=== PATIENT | female | born 1955 | race American Indian/Alaskan Native ===

== ENCOUNTER 2017-03-18 11:30 | Inpatient (IN) | payer MEDICAID ==
[2017-03-18] MEDS ORDERED: ceFAZolin 2 GM/SWFI 2 GM/20 ML SYR IVP ONE (16:42)
--- NOTE | 2017-03-18 18:16 | CPEKG ---
Heart Rate: 82 RR Interval: 732 P-R Interval: 144 QRSD Interval: 80 QT Interval: 372 QTC Interval: 435 P Coolidge: 77 QRS Coolidge: 66 T Wave Coolidge: 74 EKG Severity - BORDERLINE ECG - EKG Impression: SINUS RHYTHM EKG Impression: BORDERLINE INFERIOR Q WAVES EKG Impression: BORDERLINE T ABNORMALITIES, ANT-LAT LEADS Electronically Signed By: Wes Perez 22-Mar-2017 10:45:42
[2017-03-18] MEDS ORDERED: ONDANSETRON 4 MG/2 ML VIAL IVP PRN (20:42)
[2017-03-18] MEDS ORDERED: ALBUTEROL 3 ML DEYVIAL IH PRN (20:42)
[2017-03-18] MEDS ORDERED: ONDANSETRON DISINTEGRATING 4 MG TAB PO PRN (20:42)
[2017-03-18] MEDS ORDERED: ACETAMINOPHEN 325 MG TAB PO PRN (20:42)
--- NOTE | 2017-03-18 21:19 | GHP ---
[f rep st] HISTORY AND PHYSICAL DATE OF ADMISSION: 03/18/2017 CHIEF COMPLAINT: Needing lumpectomy tomorrow. Patient is homeless with difficulty getting preop mignon luation. HISTORY: This is a 62-year-old female who several months ago, discovered a lump in her right breast. This was diagnosed as invasive mammary carcinoma, which is ER negative and HER2 negative. It has a ctually become more painful. She is due to have surgery tomorrow, but because she is homeless with d ifficulty of getting care, she was admitted to the Medicine service the night before for preop evalua tion. Patient has no cardiac history. She does have a history of asthma. This seems to be exacerba flash by cold weather. It has actually not been as bad lately. She uses an inhaler once or twice per day. She has a nebulizer. She is not on any inhaled steroids. She is feeling fairly well. She can climb up a flight of stairs without problem. REVIEW OF SYSTEMS: A 10-point review of systems was obtained and is negative. PAST MEDICAL HISTORY: 1. Ankylosing spondylitis. 2. Asthma. 3. COPD. SOCIAL HISTORY: She is a smoker and is currently homeless. FAMILY HISTORY: A couple of aunts had breast cancer. Mother had lung cancer. PHYSICAL EXAMINATION: VITAL SIGNS: Afebrile, blood pressure is 103/48, heart rate is 93 oxygen satu ration is 90% on room air. GENERAL: Patient is thin but in no apparent distress. HEENT: Nonicteri c sclerae. Extraocular movements intact. Moist mucous membranes. NECK: Supple. No thyromegaly. LUNGS: Good effort. Some slight coarse expiratory wheezes. CARDIOVASCULAR: Regular rate and rhyth m. No murmurs, rubs, or gallops. ABDOMEN: Positive bowel sounds. Soft, nontender, nondistended. No hepatosplenomegaly. EXTREMITIES: No clubbing, cyanosis, or edema. SKIN: Without rash. Dry, in tact. NEUROLOGIC: Moving all 4 extremities equally. PSYCH: Normal affect. LABS: Still pending. EKG, personally reviewed and interpreted, does show no ischemic changes or Q-w aves. ASSESSMENT: This is a 62-year-old female who has right-sided breast cancer. 1. Right-sided breast cancer. Patient can proceed to surgery tomorrow. She is not in any active as thma exacerbation. Will continue with nebulizer treatments. Consider starting inhaled steroid as we ll to see if we may be able to give her the rest of it to complete. If she is unable to get the medi cation, we will probably just start Flovent. 2. History of asthma. As above, will continue nebulizer treatments and start inhaled steroid. 3. Chronic obstructive pulmonary disease. Patient is a smoker currently, is requiring nicotine [facility]. 4. Ankylosing spondylitis. This is quiescent. /[id number]/MODL
[2017-03-18 21:39] LABS: PLATELET COUNT 312 10^3/uL (150-400)
[2017-03-18] MEDS: NICOTINE 14 MG/24 HR PATCH TD SCH (21:46)
[2017-03-18] MEDS: IPRATROPIUM/ALBUTEROL 3 ML DEYVIAL IH SCH (22:54)
[2017-03-18] MEDS: FLUTICASONE HFA 110 MCG MDI IH SCH (22:54)
[2017-03-19] MEDS: IPRATROPIUM/ALBUTEROL 3 ML DEYVIAL IH SCH ×4 (05:53→20:27)
[2017-03-19] MEDS ORDERED: LIDOCAINE 1% 300 MG/30 ML SDV ONE (07:50)
[2017-03-19] MEDS ORDERED: BUPIVACAINE 0.5% 30 ML SDV ONE (07:50)
[2017-03-19] MEDS: NICOTINE 14 MG/24 HR PATCH TD SCH (08:55)
[2017-03-19] MEDS: FLUTICASONE HFA 110 MCG MDI IH SCH ×2 (08:58→20:27)
[2017-03-19] MEDS ORDERED: LR 1,000 ML IV ONE (09:39)
[2017-03-19] MEDS ORDERED: ceFAZolin 2 GM/SWFI 2 GM/20 ML SYR IVP ONE (10:00)
--- NOTE | 2017-03-19 10:49 | ASMTCMCOM ---
CM Note CM Note Notes: Pt admitted for lumpectomy. Pt will likely DC Monday 03/20. Pt has been approved for a two-night respite stay at the [facility] to be paid from the breast cancer fund. CM made reservation at [facility] for Thursday and Thursday night. Pt's partner given permission to stay in room with pt. [employer] contacted. They will deliver 6 frozen meals, salads and desserts to the [facility] tomorrow. If pt's DC delayed, [facility] will need to be contacted as well as [employer]. [employer] does not deliver on weekends so other arrangements for food will need to be made. If pt requires HC RN for any reason, [facility] will need to be contacted. CM will continue to follow. Date Signed: 03/19/2017 10:48 AM Electronically Signed By:Noemi Pantoja LCSW
--- NOTE | 2017-03-19 11:08 | PDANEPAE ---
ANE History of Present Illness 62 year old female presents for breast lumpectomy. ANE Past Medical History - Cardiovascular History Hx Hypertension: No Hx Arrhythmias: No Hx Chest Pain: No Hx Coronary Artery / Peripheral Vascular Disease: No Hx CHF / Valvular Disease: No Hx Palpitations: No - Pulmonary History Hx COPD: Yes Hx Asthma/Reactive Airway Disease: Yes Hx Recent Upper Respiratory Infection: No Hx Oxygen in Use at Home: No Hx Sleep Apnea: No Sleep Apnea Screening Result - Last Documented: Negative Pulmonary History Comment: asthma - Neurologic History Hx Cerebrovascular Accident: No Hx Seizures: No Hx Dementia: No - Endocrine History Hx Diabetes: No Obesity: no - Renal History Hx Renal Disorders: No - Liver History Hx Hepatic Disorders: No - Neurological & Psychiatric Hx Hx Neurological and Psychiatric Disorders: No - Cancer History Hx Cancer: Yes Cancer History Comment: Breast Cancer right - Congenital Disorder History Hx Congenital Disorders: No - GI History Hx Gastrointestinal Disorders: No - Other Health History Other Health History: Ankylosing Spondylitis. Rheumatic Fever - Chronic Pain History Chronic Pain: No - Surgical History Prior Surgeries: c-secton. tubal ligation. tonsillectomy ANE Review of Systems Review of systems is: negative Review of Systems: - Exercise capacity Exercise capacity: >=4 METS METS (RN): 4 METS ANE Patient History - Allergies Allergies/Adverse Reactions: baclofen Allergy (Verified 03/18/17 16:55) Other-Enter Comments codeine Allergy (Verified 03/18/17 18:44) - Home Medications Home medications: home medication list seen and reviewed Home Medications: Albuterol [Proventil Inhaler HFA (*)] 1 - 2 puffs IH Q4H PRN 03/17/17 [Last Taken 03/18/17 12:00] Albuterol Sulfate [ALBUTEROL SULFATE 1.25 MG/3 ML] 1.25 mg IH BID PRN 03/18/17 [ Last Taken 1 Week Ago ~03/11/17] HYDROcodone/APAP 10/325 [Caret 10/325 (*)] 1 tab PO TID PRN 03/18/17 [Last Taken 03/18/17 14:00] - NPO status NPO Status: no food or drink >8 hours NPO Since - Liquids (Date): 03/19/17 NPO Since - Liquids (Time): 00:00 NPO Since - Solids (Date): 03/19/17 NPO Since - Solids (Time): 00:00 - Anes Hx Anes Hx: no prior problems - Smoking Hx Smoking Status: Current every day smoker Marijuana use: No - Family Anes Hx Family Anes Hx: neg - N/A Family Hx Anesthesia Complications: none ANE Labs/Vital Signs - Labs Result Diagrams: 03/18/17 21:30 03/18/17 21:30 - Vital Signs Vital Signs: reviewed preoperatively; see RN documention for details Blood Pressure: 111/83 Heart Rate: 93 Respiratory Rate: 16 O2 Sat (%): 91 Height: 152.4 cm Weight: 41.73 kg ANE Physical Exam - Airway Neck exam: FROM Mallampati Score: Class 1 Mouth exam: normal dental/mouth exam - Pulmonary Pulmonary: no respiratory distress - Cardiovascular Cardiovascular: regular rate and rhythym - ASA Status ASA Status: III ANE Anesthesia Plan Anesthesia Plan: GA w LMA Total IV Anesthesia: No
[2017-03-19] MEDS ORDERED: PROPOFOL/EMULSION 500 MG/50 ML BOTTLE IV ONE (11:32)
[2017-03-19] MEDS ORDERED: fentaNYL 100 MCG/2 ML INJ ONE ×2 (11:53→13:16)
[2017-03-19] MEDS ORDERED: DEXAMETHASONE 4 MG/ML VIAL ONE (11:54)
[2017-03-19] MEDS ORDERED: ONDANSETRON 4 MG/2 ML VIAL ONE (11:54)
--- NOTE | 2017-03-19 12:40 | POSTOPPROG ---
Post Op Note Date of Operation: 03/19/17 Surgeon: Nena Fleming Anesthesiologist: jemima Anesthesia: GET(General Endotracheal) Pre-op Diagnosis: r breast cancer Post-op Diagnosis: same Indication: 62 yo with r breast cancer Procedure: r lumpectomy r sln Findings: neg sln Inf/Abcess present in the surg proc area at time of surgery?: No Specimen(s): breast tissue margins and sln
[2017-03-19] MEDS ORDERED: HYDROmorphONE/DILAUDID 1 MG/ML INJ IVP PRN (12:41)
[2017-03-19] MEDS ORDERED: ONDANSETRON 4 MG/2 ML VIAL IVP PRN (12:41)
[2017-03-19] MEDS ORDERED: NALOXONE HCL 0.4 MG/ML INJ IVP PRN (12:41)
[2017-03-19] MEDS ORDERED: LR 500 ML IV PRN (12:41)
[2017-03-19] MEDS ORDERED: HYDROCODONE/APAP 5/325 TAB PO PRN (12:41)
[2017-03-19] MEDS ORDERED: PHENYLEPHRINE HCL 100 MCG/ML SYR IVP PRN (12:41)
[2017-03-19] MEDS ORDERED: epHEDrine SULFATE 10 MG/ML SYR IVP PRN (12:41)
[2017-03-19] MEDS ORDERED: ROCURONIUM 50 MG/5 ML VIAL ONE (12:47)
[2017-03-19] MEDS: fentaNYL 100 MCG/2 ML INJ IVP PRN ×2 (13:20→13:30)
--- NOTE | 2017-03-19 15:10 | HOSPPROG ---
Hospitalist Progress Note Assessment/Plan: # breast cancer, ER neg, HER2 neg - s/p lumpectomy and SLN bx (negative) # COPD - cont inhalers, on RA # tobacco - nicotine patch # ankylosing spondylitis Subjective: s/p surgery, no complications Objective: Vital Signs Temp Pulse Resp BP Pulse Ox 36.8 C 82 18 110/68 92 03/19/17 13:56 03/19/17 13:56 03/19/17 13:56 03/19/17 13:56 03/19/17 13:56 Laboratory Results 03/18/17 21:30 03/18/17 21:30 03/18/17 03/19/17 03/20/17 05:59 05:59 05:59 Intake Total 900 Output Total 10 Balance 890 CXR and ECG personally reviewed - Physical Exam Constitutional: no apparent distress, appears nourished Cardiovascular: regular rate and rhythym, no murmur, rub, or gallop Respiratory: no respiratory distress, no rales or rhonchi, clear to auscultation Gastrointestinal: normoactive bowel sounds, soft, non-tender abdomen, no palpable masses Skin: warm ICD10 Worksheet Patient Problems: Problems Problem Status Onset Breast cancer Acute
--- NOTE | 2017-03-19 17:27 | POSTANESTH ---
Post Anesthetic Evaluation Cardiovascular Status: Normal, Stable, Similar to Pre-Op Cond Respiratory Status: Normal, Stable, Similar to Pre-op Cond. Level of Consciousness/Mental Status: Can Participate in Eval, Alert and Oriented Pain Control: Adequate, Prn Tx Ordered Nausea/Vomiting Control: Adequate, Prn Tx Ordered Complications Possibly Related to Anesthesia: None Noted
[2017-03-19] MEDS: HYDROCODONE/APAP 10/325 TAB PO PRN (22:00)
[2017-03-20] MEDS: IPRATROPIUM/ALBUTEROL 3 ML DEYVIAL IH SCH ×2 (06:14→11:35)
[2017-03-20] MEDS: HYDROCODONE/APAP 10/325 TAB PO PRN (06:25)
--- NOTE | 2017-03-20 08:34 | SOAPPROG ---
SOAP Progress Note Assessment/Plan: Assessment/Plan: 62yo F POD #1 s/p right lumpectomy and SLN biopsy. Frozen section negative Path pending Pain controlled Dispo: plan is DC to hot today - case management will coordinate plan/. F/u 2 weeks S: feeling well this morning. Using ice which is helping with discomfort O: Laying in bed, comfortable, NAD No increased WOB R breast dressing in place without surrounding erythema. No ecchymosis. Nontender Objective: Vital Signs Temp Pulse Resp BP Pulse Ox 36.6 C 77 12 93/55 L 94 03/20/17 04:00 03/20/17 04:00 03/20/17 06:15 03/20/17 04:00 03/20/17 06:15 Laboratory Results 03/18/17 21:30 03/18/17 21:30 03/19/17 03/20/17 03/21/17 05:59 05:59 05:59 Intake Total 3000 Output Total 12 Balance 2988 ICD10 Worksheet Patient Problems: Problems Problem Status Onset Breast cancer Acute
--- NOTE | 2017-03-20 08:48 | PDMN ---
Medical Necessity Medical necessity: change to IP; los>2mn for continued eval and rx s/p R lumpectomy/SLN for breast cancer; comorbid COPD, ankylosing spondylitis, and homelessness; per order and progress note 03/19/17
[2017-03-20 10:35] VITALS: BP 102/61; PULSE 82; RESP 18; TEMP 98.6; O2SAT 93
[2017-03-20] MEDS: NICOTINE 14 MG/24 HR PATCH TD SCH (11:46)
--- NOTE | 2017-03-20 14:39 | ASDISCHSUM ---
Discharge Information Plan Status: Medically Cleared to Leave: Discharge Date:03/20/2017 02:30 PM CM D/C Disposition: ADT D/C Disposition:Home, Routine, Self-Care Projected Discharge Date:03/20/2017 02:30 PM Transportation at D/C: Discharge Delay Reason: Follow-Up Date:03/20/2017 02:30 PM Discharge Slot: Final Diagnosis: Placement Information Patient Contact Information Contact Name:NATALIE Relationship:Joss Address: Work Phone: City: [facility] Phone: State/Zip Code: Email: Financial Information Financial Class: Primary Plan Desc:[employer] [place] Primary Plan Number:[id number] Secondary Plan Desc: Secondary Plan Number: Assessment Information [facility] CM Progress Note CM Note CM Note Notes: Pt admitted for lumpectomy. Pt will likely DC Monday 03/20. Pt has been approved for a two-night respite stay at the [facility] to be paid from the breast cancer fund. CM made reservation at [facility] for Thursday and Thursday night. Pt's partner given permission to stay in room with pt. [employer] contacted. They will deliver 6 frozen meals, salads and desserts to the [facility] tomorrow. If pt's DC delayed, [facility] will need to be contacted as well as [employer]. [employer] does not deliver on weekends so other arrangements for food will need to be made. If pt requires HC RN for any reason, [facility] will need to be contacted. CM will continue to follow. Date Signed: 03/19/2017 10:48 AM Electronically Signed By:Noemi Pantoja LCSW [facility] CM Progress Note CM Note CM Note Notes: Pt ready for DC today. Plan was for pt to stay at the [facility] for two days and [employer] would provide food. However, pt is currently paying $61/day to park her truck at [facility] and had already paid for tonight. She was hoping to be able to transfer her hotel room to [facility] but that was not feasible. Pt declind the offer of a respite hotel bed. She plans to stay at a [employer] in [facility] starting tomorrow night. Date Signed: 03/20/2017 02:37 PM Electronically Signed By:Noemi Pantoja LCSW Intervention Information
--- NOTE | 2017-03-20 15:37 | GDS ---
[f rep st] DISCHARGE SUMMARY ALL DIAGNOSES: 1. Estrogen-receptor negative, human epidermal growth factor receptor 2 negative breast cancer, stat us post lumpectomy and sentinel lymph node biopsy. 2. Chronic obstructive pulmonary disease, on inhalers. 3. Tobacco. 4. Ankylosing spondylitis. HOSPITAL COURSE: A 62-year-old female admitted for lumpectomy. This was performed by Dr. Fleming on 0 03/19/2017 with a sentinel lymph node biopsy. Preliminary read on the biopsy is negative, though saúl katey read is pending. There were no postoperative complications. She is tolerating food, ambulating, r viridiana for discharge. She had been admitted as a courtesy to get her preoperative workup completed, as there was difficulty arranging this as an outpatient. We offered her to pay for her 2 nights in a hotel room, though she refused, as she had already paid for a campsite for the night. She was somewhat displeased that we were unable to arrange a hotel for her in [place]. I discussed all this with the patient, as we ll as Case Management on the day of discharge. FOLLOWUP: Dr. Fleming next week. Currently has an appointment. She should get a referral to Oncology as appropriate at that point. The patient is aware of this. BILLING: I spent more than 30 minutes on the day of discharge coordinating care. /[id number]/MODL
== END 2017-03-20 14:30 | disposition home or self-care (01) | DRG 581 ==
LOC: F1N 16:53 → INTOOBSV 16:53 → OBSVTOIN 03-19 15:05
PROVIDERS: ADMIT Internal Medicine; ATTEND Internal Medicine
PROC: 0HBT0ZZ Excision of Right Breast, Open Approach (ICD-10-PCS; principal; 2017-03-19 11:30)
PROC: 07B80ZX Excision of Right Internal Mammary Lymphatic, Open Approach, Diagnostic (ICD-10-PCS; principal; 2017-03-19 11:30)
DX: C50.911 Malignant neoplasm of unspecified site of right female breast (principal); Z59.0 Homelessness; M45.9 Ankylosing spondylitis of unspecified sites in spine; J45.909 Unspecified asthma, uncomplicated; J44.9 Chronic obstructive pulmonary disease, unspecified; Z17.1 Estrogen receptor negative status [ER-]; Z72.0 Tobacco use; Z80.3 Family history of malignant neoplasm of breast; Z80.1 Family history of malignant neoplasm of trachea, bronchus and lung
CPT/HCPCS: A9520; G0378; J0690; J1100; J2370; J2405; J2704; J3010; J7613